=== PATIENT | female | born 1995 | race African-American/Black ===

== ENCOUNTER 2017-08-03 08:52 | Emergency (ER) | payer OTHER ==
[~2017-08-03] VITALS: Ht 170.2 cm; Wt 127.0 kg
[2017-08-03] MEDS ORDERED: GABAPENTIN 100100 MG PO (08:56)
[2017-08-03] MEDS ORDERED: ERYTHROMYCIN E3.5 G3 OPHTHALMIC (09:19)
[2017-08-03 09:52] VITALS: BP 122/56
== END 2017-08-03 09:53 | disposition home or self-care (01) ==
LOC: ER 08:52
DX: H10.89 Other conjunctivitis (principal); B99.9 Unspecified infectious disease